=== PATIENT | male | born 1995 | race Two or more races ===

== ENCOUNTER 2024-01-28 13:54 | Emergency (ER) | payer MEDICAID ==
[~2024-01-28] VITALS: Ht 175.3 cm; Wt 81.8 kg
[2024-01-28] MEDS ORDERED: ACET-1025 PO (14:29)
[2024-01-28] MEDS ORDERED: AMOX875T10 PO (14:29)
[2024-01-28 14:42] VITALS: BP 113/79; PULSE 67; RESP 16; TEMP 97.9; O2SAT 99
== END 2024-01-28 14:43 | disposition home or self-care (01) ==
LOC: ER 13:55
DX: K02.9 Dental caries, unspecified (principal); K08.89 Other specified disorders of teeth and supporting structures; Z79.2 Long term (current) use of antibiotics
CPT/HCPCS: 99283

== ENCOUNTER 2024-05-13 11:37 | Emergency (ER) | payer MEDICAID ==
[~2024-05-13] VITALS: Ht 175.3 cm; Wt 82.3 kg
[2024-05-13 12:04] VITALS: TEMP 97.6
[2024-05-13 13:44] LABS: BILIRUBIN,URINE NEGATIVE (Neg); CLARITY,URINE CLEAR (Clear); GLUCOSE, URINE NEGATIVE (Neg); KETONES,URINE NEGATIVE (Neg); LEUKOCYTE ESTERASE ,URINE NEGATIVE (Neg); NITRITES, URINE NEGATIVE (Neg); OCCULT BLOOD,URINE NEGATIVE (Neg); PROTEIN,URINE NEGATIVE (Neg); UROBILINOGEN,URINE 0.2 E.U/dL (0.2-1.0)
[2024-05-13 13:47] LABS: COLOR,URINE Yellow (Yellow); UA COLLECTION TYPE CLN CATCH MIDSTREAM
[2024-05-13] MEDS: HYDROcodone/acetaminophen 5mg/325mg tablet PO ONE (15:52)
[2024-05-13 17:14] VITALS: BP 158/87; PULSE 94; RESP 18; O2SAT 98
== END 2024-05-13 17:19 | disposition home or self-care (01) ==
LOC: ER 11:39
DX: N47.2 Paraphimosis (principal)
CPT/HCPCS: 81003; 99283